=== PATIENT | female | born 1940 | race Caucasian/White ===

== ENCOUNTER 2021-02-22 14:56 | Inpatient (IN) | payer MEDICARE, BC ==
[~2021-02-22] VITALS: Ht 170.2 cm; Wt 68.9 kg
[2021-02-22 15:36] LABS: *BILIRUBIN,URIN NEGATIVE (NEGATIVE); *CLARITY,URINE SLIGHTLY CLOUDY (CLEAR); *COLOR,URINE YELLOW (YELLOW); *KETONES,URINE NEGATIVE (NEGATIVE); LEUKOCYTE ESTERASE ,URINE 3+ (NEGATIVE); NITRITE, URINE POSITIVE (NEGATIVE); PH,URINE 7.5 (5.0-8.0); UGLUCOSE NEGATIVE (NEGATIVE)
[2021-02-22 15:44] LABS: *BLOOD, URINE TRACE (NEGATIVE)
[2021-02-22 15:47] LABS: BACTERIA,URINE MANY /HPF (NONE SEEN); RBC,URINE 0-3 /HPF (0-3); SQUAMOUS EPITHELIAL CELL,UR MODERATE /HPF (NONE SEEN); WBC,URINE 20-50 /HPF (0-3)
[2021-02-22] MEDS ORDERED: POTASSIUM BICARBONATE/CIT AC 25 MEQ TABLET.EFF PO ONE (16:00)
[2021-02-22] MEDS ORDERED: NITROFURANTOIN/NITROFURAN MAC 100 MG CAPSULE PO ONE (16:10)
[2021-02-22] MEDS ORDERED: POTASSIUM BICARBONATE/CIT AC 25 MEQ TABLET.EFF ONE (16:10)
[2021-02-22 16:30] VITALS: BP 113/63
[2021-02-22] MEDS ORDERED: MAG HYDROX/AL HYDROX/SIMETH 30 ML LIQUID UDC PO PRN (16:45)
[2021-02-22] MEDS ORDERED: MAGNESIUM HYDROXIDE 30 ML LIQUID UDC PO PRN (16:45)
[2021-02-22] MEDS ORDERED: BLOOD SUGAR DIAGNOSTIC 1 EACH STRIP VI ONE (16:45)
[2021-02-22] MEDS ORDERED: NITROFURANTOIN/NITROFURAN MAC 100 MG CAPSULE PO SCH (17:00)
[2021-02-22] MEDS ORDERED: OLAN5TAB3 PO (17:02)
[2021-02-22] MEDS ORDERED: POLY17PO4 PO (17:02)
[2021-02-22] MEDS ORDERED: RIVA1PAT TD (17:02)
[2021-02-22] MEDS ORDERED: FURO80TA87 PO (17:02)
[2021-02-22] MEDS ORDERED: ESTRADIOL CREAM VG (17:02)
[2021-02-22] MEDS ORDERED: POTA10CA43 PO (17:02)
[2021-02-22] MEDS ORDERED: TRAM50TA2 PO (17:02)
[2021-02-22] MEDS ORDERED: ONDA-104 PO (17:02)
[2021-02-22] MEDS ORDERED: ACET-2154 PO (17:02)
[2021-02-22] MEDS ORDERED: LIDOCAINE 5% PATCH TD (17:02)
[2021-02-22] MEDS ORDERED: MIRALAX 17 GM POWD.PACK PO PRN (17:30)
[2021-02-22] MEDS ORDERED: ACETAMINOPHEN 325 MG TABLET PO PRN (17:30)
[2021-02-22] MEDS ORDERED: ONDANSETRON HCL 4 MG TABLET PO PRN (17:30)
[2021-02-22] MEDS: LORAZEPAM 0.5 MG TABLET PO PRN (20:28)
[2021-02-22 21:03] VITALS: BP 109/48
[2021-02-22] MEDS: ACETAMINOPHEN 325 MG TABLET PO PRN (22:39)
[2021-02-22] MEDS: TEMAZEPAM 7.5 MG CAPSULE PO PRN (22:40)
[2021-02-23] MEDS: TRAMADOL HCL 50 MG TABLET PO PRN ×2 (06:30→18:34)
[2021-02-23 07:30] VITALS: BP 105/48
[2021-02-23 07:42] LABS: CREATININE 0.9 mg/dL (0.6-1.3); POTASSIUM 3.5 mmol/L (3.5-5.1)
[2021-02-23] MEDS: NITROFURANTOIN/NITROFURAN MAC 100 MG CAPSULE PO SCH ×2 (10:23→20:13)
[2021-02-23] MEDS: FUROSEMIDE 40 MG TABLET PO SCH (10:23)
[2021-02-23] MEDS: POTASSIUM CHLORIDE 10 MEQ TAB.PRT.SR PO SCH (10:24)
[2021-02-23] MEDS: RIVASTIGMINE 4.6 MG PATCH TD SCH (10:27)
[2021-02-23] MEDS: ACETAMINOPHEN 325 MG TABLET PO PRN (10:58)
[2021-02-23 15:32] VITALS: BP 95/51
[2021-02-23 20:00] VITALS: BP 106/50
[2021-02-23] MEDS: LORAZEPAM 0.5 MG TABLET PO PRN (20:14)
[2021-02-23] MEDS: Z GUARD REMEDY PASTE 57 GM TUBE TOP SCH (20:19)
[2021-02-24] MEDS: TEMAZEPAM 7.5 MG CAPSULE PO PRN (00:16)
[2021-02-24] MEDS: TRAMADOL HCL 50 MG TABLET PO PRN ×2 (00:16→19:36)
[2021-02-24 07:30] VITALS: BP 113/57
[2021-02-24] MEDS: POTASSIUM CHLORIDE 10 MEQ TAB.PRT.SR PO SCH (08:08)
[2021-02-24] MEDS: ESCITALOPRAM OXALATE 10 MG TABLET PO SCH (08:08)
[2021-02-24] MEDS: NITROFURANTOIN/NITROFURAN MAC 100 MG CAPSULE PO SCH ×2 (08:08→20:10)
[2021-02-24] MEDS: FUROSEMIDE 40 MG TABLET PO SCH (08:08)
[2021-02-24] MEDS: ENSURE ENLIVE (VAN) 240 ML LIQUID PO SCH (08:09)
[2021-02-24] MEDS: Z GUARD REMEDY PASTE 57 GM TUBE TOP SCH ×2 (08:09→21:08)
[2021-02-24] MEDS: RIVASTIGMINE 4.6 MG PATCH TD SCH (08:10)
[2021-02-24 15:16] VITALS: BP 102/47
[2021-02-24] MEDS: LORAZEPAM 0.5 MG TABLET PO PRN (19:36)
[2021-02-24 20:00] VITALS: BP 116/51
[2021-02-25 07:30] VITALS: BP 110/53
[2021-02-25] MEDS: POTASSIUM CHLORIDE 10 MEQ TAB.PRT.SR PO SCH (08:09)
[2021-02-25] MEDS: ESCITALOPRAM OXALATE 10 MG TABLET PO SCH (08:09)
[2021-02-25] MEDS: NITROFURANTOIN/NITROFURAN MAC 100 MG CAPSULE PO SCH ×2 (08:09→21:02)
[2021-02-25] MEDS: FUROSEMIDE 40 MG TABLET PO SCH (08:09)
[2021-02-25] MEDS: RIVASTIGMINE 4.6 MG PATCH TD SCH (08:10)
[2021-02-25] MEDS: Z GUARD REMEDY PASTE 57 GM TUBE TOP SCH ×2 (08:12→21:02)
[2021-02-25] MEDS: ENSURE ENLIVE (VAN) 240 ML LIQUID PO SCH (08:12)
[2021-02-25 15:40] VITALS: BP 114/55
[2021-02-25 20:08] VITALS: BP 112/51
[2021-02-25] MEDS: TEMAZEPAM 7.5 MG CAPSULE PO PRN (23:23)
[2021-02-25] MEDS: TRAMADOL HCL 50 MG TABLET PO PRN (23:23)
[2021-02-26 07:30] VITALS: BP 118/46
[2021-02-26] MEDS: ENSURE ENLIVE (VAN) 240 ML LIQUID PO SCH ×2 (08:35→16:50)
[2021-02-26] MEDS: ESCITALOPRAM OXALATE 10 MG TABLET PO SCH (08:35)
[2021-02-26] MEDS: NITROFURANTOIN/NITROFURAN MAC 100 MG CAPSULE PO SCH ×2 (08:35→20:26)
[2021-02-26] MEDS: POTASSIUM CHLORIDE 10 MEQ TAB.PRT.SR PO SCH (08:35)
[2021-02-26] MEDS: FUROSEMIDE 40 MG TABLET PO SCH (08:35)
[2021-02-26] MEDS: RIVASTIGMINE 4.6 MG PATCH TD SCH (08:36)
[2021-02-26] MEDS: Z GUARD REMEDY PASTE 57 GM TUBE TOP SCH ×2 (08:36→20:30)
[2021-02-26 15:41] VITALS: BP 98/56
[2021-02-26 20:08] VITALS: BP 100/67
[2021-02-26] MEDS: OLANZAPINE 2.5 MG TABLET PO SCH (20:26)
[2021-02-27] MEDS: TRAMADOL HCL 50 MG TABLET PO PRN ×4 (00:21→22:26)
[2021-02-27 07:30] VITALS: BP 116/59
[2021-02-27] MEDS: ESCITALOPRAM OXALATE 10 MG TABLET PO SCH (08:23)
[2021-02-27] MEDS: POTASSIUM CHLORIDE 20 MEQ TAB.PRT.SR PO SCH (08:23)
[2021-02-27] MEDS: FUROSEMIDE 40 MG TABLET PO SCH (08:23)
[2021-02-27] MEDS: RIVASTIGMINE 4.6 MG PATCH TD SCH (08:23)
[2021-02-27] MEDS: NITROFURANTOIN/NITROFURAN MAC 100 MG CAPSULE PO SCH (08:23)
[2021-02-27] MEDS: ENSURE ENLIVE (VAN) 240 ML LIQUID PO SCH ×2 (09:06→16:04)
[2021-02-27] MEDS: Z GUARD REMEDY PASTE 57 GM TUBE TOP SCH ×2 (09:06→21:03)
[2021-02-27 16:00] VITALS: BP 133/70
[2021-02-27 20:11] VITALS: BP 129/61
[2021-02-27] MEDS: OLANZAPINE 2.5 MG TABLET PO SCH (20:52)
[2021-02-28] MEDS: LORAZEPAM 1 MG TABLET PO PRN ×2 (02:32→20:19)
[2021-02-28 07:30] VITALS: BP 122/59
[2021-02-28] MEDS: POTASSIUM CHLORIDE 20 MEQ TAB.PRT.SR PO SCH (09:55)
[2021-02-28] MEDS: ESCITALOPRAM OXALATE 10 MG TABLET PO SCH (09:55)
[2021-02-28] MEDS: RIVASTIGMINE 4.6 MG PATCH TD SCH (09:56)
[2021-02-28] MEDS: Z GUARD REMEDY PASTE 57 GM TUBE TOP SCH ×2 (09:58→20:18)
[2021-02-28] MEDS: FUROSEMIDE 40 MG TABLET PO SCH (09:58)
[2021-02-28] MEDS: ENSURE ENLIVE (VAN) 240 ML LIQUID PO SCH ×2 (09:59→17:39)
[2021-02-28 16:00] VITALS: BP 107/54
[2021-02-28 19:52] VITALS: BP 122/56
[2021-02-28] MEDS: TRAMADOL HCL 50 MG TABLET PO PRN (20:19)
[2021-02-28] MEDS: OLANZAPINE 2.5 MG TABLET PO SCH (20:24)
[2021-03-01] MEDS: TEMAZEPAM 7.5 MG CAPSULE PO PRN (01:42)
[2021-03-01 07:30] VITALS: BP 112/47
[2021-03-01] MEDS: POTASSIUM CHLORIDE 20 MEQ TAB.PRT.SR PO SCH (09:25)
[2021-03-01] MEDS: FUROSEMIDE 40 MG TABLET PO SCH (09:26)
[2021-03-01] MEDS: ESCITALOPRAM OXALATE 10 MG TABLET PO SCH (09:27)
[2021-03-01] MEDS: Z GUARD REMEDY PASTE 57 GM TUBE TOP SCH ×2 (09:28→21:04)
[2021-03-01] MEDS: ENSURE ENLIVE (VAN) 240 ML LIQUID PO SCH ×2 (09:28→17:10)
[2021-03-01] MEDS: RIVASTIGMINE 4.6 MG PATCH TD SCH (09:29)
[2021-03-01 16:59] VITALS: BP 108/48
[2021-03-01] MEDS: LORAZEPAM 1 MG TABLET PO PRN (17:27)
[2021-03-01 20:19] VITALS: BP 97/43
[2021-03-01] MEDS: MELATONIN 3 MG TABLET PO SCH (21:00)
[2021-03-01] MEDS: OLANZAPINE 2.5 MG TABLET PO SCH (21:00)
[2021-03-02 07:30] VITALS: BP 116/58
[2021-03-02] MEDS: ENSURE ENLIVE (VAN) 240 ML LIQUID PO SCH ×2 (08:07→16:10)
[2021-03-02] MEDS: TRAMADOL HCL 50 MG TABLET PO PRN ×2 (08:07→22:34)
[2021-03-02] MEDS: POTASSIUM CHLORIDE 20 MEQ TAB.PRT.SR PO SCH (08:07)
[2021-03-02] MEDS: ESCITALOPRAM OXALATE 10 MG TABLET PO SCH (08:08)
[2021-03-02] MEDS: FUROSEMIDE 40 MG TABLET PO SCH (08:08)
[2021-03-02] MEDS: Z GUARD REMEDY PASTE 57 GM TUBE TOP SCH ×2 (08:09→20:07)
[2021-03-02] MEDS: RIVASTIGMINE 4.6 MG PATCH TD SCH (08:09)
[2021-03-02 16:00] VITALS: BP 129/66
[2021-03-02 20:00] VITALS: BP 118/51
[2021-03-02] MEDS: TRAZODONE 50 MG TABLET PO PRN (20:06)
[2021-03-02] MEDS: MELATONIN 3 MG TABLET PO SCH (20:06)
[2021-03-02] MEDS: OLANZAPINE 5 MG TABLET PO SCH (20:06)
[2021-03-03] MEDS: ESCITALOPRAM OXALATE 10 MG TABLET PO SCH (08:00)
[2021-03-03] MEDS: POTASSIUM CHLORIDE 20 MEQ TAB.PRT.SR PO SCH (08:00)
[2021-03-03] MEDS: FUROSEMIDE 40 MG TABLET PO SCH (08:01)
[2021-03-03] MEDS: RIVASTIGMINE 4.6 MG PATCH TD SCH (08:01)
[2021-03-03] MEDS: ENSURE ENLIVE (VAN) 240 ML LIQUID PO SCH ×2 (08:01→16:18)
[2021-03-03] MEDS: Z GUARD REMEDY PASTE 57 GM TUBE TOP SCH ×2 (08:02→20:45)
[2021-03-03 08:24] VITALS: BP 111/54
[2021-03-03] MEDS: TRAMADOL HCL 50 MG TABLET PO PRN ×2 (17:03→23:42)
[2021-03-03 20:12] VITALS: BP 112/51
[2021-03-03] MEDS: MELATONIN 3 MG TABLET PO SCH (20:42)
[2021-03-03] MEDS: OLANZAPINE 5 MG TABLET PO SCH (20:43)
[2021-03-03] MEDS: TRAZODONE 50 MG TABLET PO PRN (22:49)
[2021-03-04] MEDS: LORAZEPAM 1 MG TABLET PO PRN ×2 (03:09→22:39)
[2021-03-04 07:30] VITALS: BP 104/57
[2021-03-04] MEDS: FUROSEMIDE 40 MG TABLET PO SCH (09:26)
[2021-03-04] MEDS: POTASSIUM CHLORIDE 20 MEQ TAB.PRT.SR PO SCH (09:27)
[2021-03-04] MEDS: ESCITALOPRAM OXALATE 10 MG TABLET PO SCH (09:27)
[2021-03-04] MEDS: TRAMADOL HCL 50 MG TABLET PO PRN ×2 (09:27→20:25)
[2021-03-04] MEDS: ENSURE ENLIVE (VAN) 240 ML LIQUID PO SCH ×2 (09:27→17:08)
[2021-03-04] MEDS: Z GUARD REMEDY PASTE 57 GM TUBE TOP SCH ×2 (09:28→20:23)
[2021-03-04] MEDS: RIVASTIGMINE 4.6 MG PATCH TD SCH (09:28)
[2021-03-04 15:02] VITALS: BP 103/55
[2021-03-04 20:21] VITALS: BP 101/56
[2021-03-04] MEDS: OLANZAPINE 2.5 MG TABLET PO SCH (20:22)
[2021-03-04] MEDS: MELATONIN 3 MG TABLET PO SCH (20:22)
[2021-03-05 07:30] VITALS: BP 111/49
[2021-03-05] MEDS: ESCITALOPRAM OXALATE 10 MG TABLET PO SCH (08:58)
[2021-03-05] MEDS: FUROSEMIDE 40 MG TABLET PO SCH (08:58)
[2021-03-05] MEDS: TRAMADOL HCL 50 MG TABLET PO PRN ×2 (08:58→18:47)
[2021-03-05] MEDS: POTASSIUM CHLORIDE 20 MEQ TAB.PRT.SR PO SCH (08:58)
[2021-03-05] MEDS: ENSURE ENLIVE (VAN) 240 ML LIQUID PO SCH ×2 (08:59→17:35)
[2021-03-05] MEDS: Z GUARD REMEDY PASTE 57 GM TUBE TOP SCH ×2 (09:00→20:52)
[2021-03-05] MEDS: RIVASTIGMINE 4.6 MG PATCH TD SCH (09:00)
[2021-03-05] MEDS: DIVALPROEX SPRINKLE 125 MG CAP.SPRINK PO SCH ×2 (13:49→20:45)
[2021-03-05 15:18] VITALS: BP 95/49
[2021-03-05 20:23] VITALS: BP 116/49
[2021-03-05] MEDS: OLANZAPINE 2.5 MG TABLET PO SCH (20:45)
[2021-03-05] MEDS: MELATONIN 3 MG TABLET PO SCH (20:45)
[2021-03-05] MEDS: LORAZEPAM 1 MG TABLET PO PRN (23:39)
[2021-03-06 07:30] VITALS: BP 104/46
[2021-03-06] MEDS: DIVALPROEX SPRINKLE 125 MG CAP.SPRINK PO SCH ×2 (08:41→20:32)
[2021-03-06] MEDS: ENSURE ENLIVE (VAN) 240 ML LIQUID PO SCH ×2 (08:42→17:00)
[2021-03-06] MEDS: ESCITALOPRAM OXALATE 10 MG TABLET PO SCH (08:42)
[2021-03-06] MEDS: POTASSIUM CHLORIDE 20 MEQ TAB.PRT.SR PO SCH (08:42)
[2021-03-06] MEDS: FUROSEMIDE 40 MG TABLET PO SCH (08:42)
[2021-03-06] MEDS: TRAMADOL HCL 50 MG TABLET PO PRN ×2 (08:55→23:43)
[2021-03-06] MEDS: RIVASTIGMINE 4.6 MG PATCH TD SCH (08:56)
[2021-03-06] MEDS: Z GUARD REMEDY PASTE 57 GM TUBE TOP SCH ×2 (08:57→20:30)
[2021-03-06 16:00] VITALS: BP 106/56
[2021-03-06] MEDS: OLANZAPINE 2.5 MG TABLET PO SCH (20:32)
[2021-03-06] MEDS: MELATONIN 3 MG TABLET PO SCH (20:32)
[2021-03-06 20:51] VITALS: BP 114/49
[2021-03-07 07:30] VITALS: BP 115/62
[2021-03-07] MEDS: ESCITALOPRAM OXALATE 10 MG TABLET PO SCH (08:58)
[2021-03-07] MEDS: FUROSEMIDE 40 MG TABLET PO SCH (08:58)
[2021-03-07] MEDS: DIVALPROEX SPRINKLE 125 MG CAP.SPRINK PO SCH ×2 (08:58→20:21)
[2021-03-07] MEDS: POTASSIUM CHLORIDE 20 MEQ TAB.PRT.SR PO SCH (08:58)
[2021-03-07] MEDS: RIVASTIGMINE 4.6 MG PATCH TD SCH (08:59)
[2021-03-07] MEDS: Z GUARD REMEDY PASTE 57 GM TUBE TOP SCH ×2 (08:59→20:30)
[2021-03-07] MEDS: ENSURE ENLIVE (VAN) 240 ML LIQUID PO SCH ×2 (09:03→17:29)
[2021-03-07 16:37] VITALS: BP 109/50
[2021-03-07 20:12] VITALS: BP 125/53
[2021-03-07] MEDS: MELATONIN 3 MG TABLET PO SCH (20:22)
[2021-03-07] MEDS: OLANZAPINE 2.5 MG TABLET PO SCH (20:22)
[2021-03-07] MEDS: TRAMADOL HCL 50 MG TABLET PO PRN (23:30)
[2021-03-07] MEDS: TRAZODONE 50 MG TABLET PO PRN (23:30)
[2021-03-08 07:30] VITALS: BP 133/54
[2021-03-08] MEDS: POTASSIUM CHLORIDE 20 MEQ TAB.PRT.SR PO SCH (09:00)
[2021-03-08] MEDS: ESCITALOPRAM OXALATE 10 MG TABLET PO SCH (09:00)
[2021-03-08] MEDS: ENSURE ENLIVE (VAN) 240 ML LIQUID PO SCH ×2 (09:00→16:42)
[2021-03-08] MEDS: FUROSEMIDE 40 MG TABLET PO SCH (09:00)
[2021-03-08] MEDS: RIVASTIGMINE 4.6 MG PATCH TD SCH (09:01)
[2021-03-08] MEDS: DIVALPROEX SPRINKLE 125 MG CAP.SPRINK PO SCH ×2 (09:01→21:26)
[2021-03-08] MEDS: Z GUARD REMEDY PASTE 57 GM TUBE TOP SCH ×2 (09:02→21:14)
[2021-03-08 16:29] VITALS: BP 109/48
[2021-03-08 20:10] VITALS: BP 125/58
[2021-03-08] MEDS: OLANZAPINE 2.5 MG TABLET PO SCH (21:26)
[2021-03-08] MEDS: MELATONIN 3 MG TABLET PO SCH (21:26)
== END 2021-03-08 21:50 | DRG 885 ==
LOC: ER 14:56 → GPS 16:08
PROVIDERS: ADMIT Psychiatry & Neurology Psychiatry; ATTEND Nurse Practitioner Acute Care
DX: F31.5 Bipolar disorder, current episode depressed, severe, with psychotic features (principal); R45.851 Suicidal ideations; N39.0 Urinary tract infection, site not specified; Z16.11 Resistance to penicillins; Z16.29 Resistance to other single specified antibiotic; B96.20 Unspecified Escherichia coli [E. coli] as the cause of diseases classified elsewhere; M16.11 Unilateral primary osteoarthritis, right hip; I89.0 Lymphedema, not elsewhere classified; I10 Essential (primary) hypertension; F03.90 Unspecified dementia, unspecified severity, without behavioral disturbance, psychotic disturbance, mood disturbance, and anxiety; Z87.440 Personal history of urinary (tract) infections; Z96.641 Presence of right artificial hip joint; Z79.899 Other long term (current) drug therapy; G89.29 Other chronic pain; E87.6 Hypokalemia
CPT/HCPCS: 36415; 87077; 87086; 93005; A4663